=== PATIENT | female | born 1980 | race Two or more races ===

== ENCOUNTER 2025-04-25 07:22 | Emergency (ER) | payer OTHER ==
[~2025-04-25] VITALS: Ht 157.5 cm; Wt 74.8 kg
[2025-04-25 07:30] VITALS: BP 117/80; O2SAT 99
[2025-04-25 08:28] LABS: BASO % 0.5 % (0.1-1.2); EOS # 0.16 (0.04-0.54); EOS % 2.7 % (0.7-7.0); LYMPH # 1.86 (1.18-3.74); LYMPH % 31.7 % (19.3-53.1); MEAN PLATELET VOLUME 10.70 fl (9.4-12.4); MONO # 0.38 (0.24-0.82); MONO % 6.5 % (4.7-12.5); NEUT # 3.42 (1.56-6.13); NEUT % 58.4 % (34.0-71.1); RED CELL DISTRIBUTION WIDTH 12.4 % (11.6-14.4)
[2025-04-25 08:30] LABS: URINE APPEARANCE Clear; URINE BILIRRUBIN Negative (NEGATIVE); URINE BLOOD Negative; URINE COLOR Yellow; URINE GLUCOSE Negative (NEGATIVE); URINE KETONE Negative (NEGATIVE); URINE LEUKOCYTE Negative; URINE NITRATE Negative; URINE PROTEIN Negative (NEGATIVE); URINE UROBILINOGEN 0.2 E.U./dl
[2025-04-25 08:35] LABS: URINE BACTERIA 385.2 uL (0.0-1933); URINE EPITHELIAL CELLS 22.8 uL (0.0-38.8); URINE RBC 2.0 uL (0.0-20.8); URINE WBC 3.2 uL (0.0-23.2)
[2025-04-25 08:41] LABS: URINE CAST 0.00 uL (0.0-1.40)
[2025-04-25 09:02] LABS: ALT/SGPT 57.0 U/L (12-78); AST/SGOT 32.0 U/L (15-37); BILIRUBIN TOTAL 0.39 mg/dL (0.3-1.2); BUN CREA RATIO 10.0 (7.0-25.0); CREATININE SERUM 0.62 mg/dL (0.55-1.02); GFR 105.56; GLOBULINA 3.6 G/DL (2.4-3.5); GLUCOSE FASTING 97.0 mg/dL (65-100); OSMOLALITY SERUM 284.0 MOSM/KG (275-295)
[2025-04-25] MEDS ORDERED: ORPHENADRINE CITRATE 30 MG/ML AMPUL IM STA (09:27)
[2025-04-25] MEDS ORDERED: KETOROLAC TROMETHAMINE 30 MG VIAL IM STA (09:27)
[2025-04-25] MEDS ORDERED: ORPHENADRINE CITRATE 30 MG/ML AMPUL ONE ×2 (09:31→09:34)
[2025-04-25] MEDS ORDERED: KETOROLAC TROMETHAMINE 30 MG VIAL ONE ×2 (09:31→09:34)
== END 2025-04-25 13:55 | disposition home or self-care (01) ==
LOC: ER 07:22
PROVIDERS: General Practice
DX: M54.9 Dorsalgia, unspecified (principal); R30.0 Dysuria